=== PATIENT | female | born 1955 | race Caucasian/White ===

== ENCOUNTER → 2016-12-15 | Outpatient (CLI) | payer OTHER | LOC: CT 10:01 | DX: M54.12 Radiculopathy, cervical region (principal); M47.812 Spondylosis without myelopathy or radiculopathy, cervical region | CPT/HCPCS: 72125 ==

== ENCOUNTER → 2020-12-18 | Outpatient (CLI) | payer MEDICARE ==
[~2020-12-18] MED LIST: ALL DAY ALLERGY10 M2 PO; CYMBALTA 30 MG30 MG PO; ECOTRIN81 MG PO; FOLIC ACID 1 MG1 MG PO; GABAPENTIN400 MG PO; HYDROCHLOROTHIA25 MG PO; KEFLEX CAP 500500 MG PO; LIORESAL TAB 1010 MG PO; PRAVACHOL40 MG PO; PROTONIX40 MG PO; VITAMIN D250000 UNIT PO; XANAX 0.25 MG0.25 MG PO; ZYLOPRIM 100 M100 MG PO
== END ==
LOC: EXRD 12-12 15:00
DX: Z78.0 Asymptomatic menopausal state (principal); M85.89 Other specified disorders of bone density and structure, multiple sites
CPT/HCPCS: 77080

== ENCOUNTER → 2021-01-31 | Outpatient (CLI) | payer MEDICARE | LOC: KOH-I 09:14 | DX: R31.9 Hematuria, unspecified (principal) | CPT/HCPCS: 74176 ==

== ENCOUNTER → 2021-05-29 | Outpatient (CLI) | payer MEDICARE | LOC: CT 07:35 | DX: R10.2 Pelvic and perineal pain (principal); N28.89 Other specified disorders of kidney and ureter | CPT/HCPCS: Q9967 ==

== ENCOUNTER → 2021-07-08 | Outpatient (CLI) | payer MEDICARE | LOC: HEART 5 13:05 | DX: R55 Syncope and collapse (principal) ==

== ENCOUNTER → 2021-07-14 | Outpatient (CLI) | payer MEDICARE | LOC: US 07-02 09:30 | DX: R42 Dizziness and giddiness (principal); E78.5 Hyperlipidemia, unspecified; I10 Essential (primary) hypertension; R55 Syncope and collapse | CPT/HCPCS: 93880 ==

== ENCOUNTER → 2021-07-22 | Outpatient (CLI) | payer MEDICARE | LOC: LBRF 15:44 | DX: R31.9 Hematuria, unspecified (principal) | CPT/HCPCS: 87086 ==

== ENCOUNTER → 2021-10-15 | Outpatient (CLI) | payer MEDICARE, OTHER ==
[2021-10-15 12:19] LABS: HEMOGLOBIN 13.6 gm/dl (12.3-15.3); RED BLOOD COUNT 4.32 M/UL (4.00-5.10); WHITE BLOOD COUNT 6.2 K/UL (4.5-11.0)
[2021-10-15 12:40] LABS: BUN/CREATININE RATIO 35 (0-10)
[2021-10-16 07:12] LABS: RHEUMATOID ARTHRITIS FACTOR 39.7 IU/mL (<14.0)
[2021-10-16 08:16] LABS: HBSAG SCREEN Negative (Negative); HEPATITIS B SURF AB QUANT <3.1 mIU/mL (Immunity>9.9)
[2021-10-17 19:08] LABS: QUANTIFERON MITOGEN VALUE >10.00 IU/mL (.); QUANTIFERON NIL VALUE 0.01 IU/mL (.); QUANTIFERON TB1 AG VALUE 0.01 IU/mL (.); QUANTIFERON TB2 AG VALUE 0.01 IU/mL (.); QUANTIFERON-TB GOLD PLUS Negative (Negative)
== END ==
LOC: LAB 11:31
PROVIDERS: Internal Medicine
DX: Z51.81 Encounter for therapeutic drug level monitoring (principal); M06.9 Rheumatoid arthritis, unspecified; M19.90 Unspecified osteoarthritis, unspecified site; M25.549 Pain in joints of unspecified hand; Z79.899 Other long term (current) drug therapy
CPT/HCPCS: 36415; 80053; 83520; 85025; 85652; 86140; 86200; 86317; 86431; 86704; 87340

== ENCOUNTER → 2022-01-20 | Outpatient (CLI) | payer MEDICARE | LOC: RAD 11:24 | DX: M41.9 Scoliosis, unspecified (principal); M43.16 Spondylolisthesis, lumbar region; M51.34 Other intervertebral disc degeneration, thoracic region | CPT/HCPCS: 72040; 72072; 72100 ==

== ENCOUNTER → 2022-01-29 | Outpatient (CLI) | payer MEDICARE ==
[2022-01-29 15:59] LABS: HEMOGLOBIN 13.3 gm/dl (12.3-15.3); RED BLOOD COUNT 4.22 M/UL (4.00-5.10); WHITE BLOOD COUNT 6.9 K/UL (4.5-11.0)
[2022-01-29 16:23] LABS: BUN/CREATININE RATIO 34 (0-10)
== END ==
LOC: LAB 15:14
PROVIDERS: Internal Medicine
DX: M05.79 Rheumatoid arthritis with rheumatoid factor of multiple sites without organ or systems involvement (principal); R76.0 Raised antibody titer; M25.50 Pain in unspecified joint; Z79.899 Other long term (current) drug therapy
CPT/HCPCS: 36415; 80053; 83520; 85027; 85652; 86140